=== PATIENT | female | born 1975 | race Caucasian/White ===

== ENCOUNTER 2020-12-10 13:56 | Inpatient (IN) | payer SELFPAY ==
[2020-12-10] MEDS ORDERED: Pantoprazole 40 MG VIAL ONE (14:11)
[2020-12-10 15:25] LABS: Hemoglobin 5.2 g/dL (12.0-16.0); Mean Corpuscular HGB CONC 31.5 g/dL (32.0-36.0); Mean Corpuscular Hemoglobin 26.8 pg (27.0-31.0); Mean Corpuscular Volume 85.2 fL (78.0-98.0); RBC Distribution Width 20.6 % (11.5-14.5); Red Blood Cell (RBC) Count 1.93 mill/uL (4.20-5.40)
[2020-12-10 15:26] LABS: #Eosinphils 0.1 thou/uL (0.0-0.7); #Lymphocytes 1.2 thou/uL (1.20-3.40); #Monocytes 0.5 thou/uL (0.11-0.59); #Neutrophils 3.4 thou/uL (1.40-6.50); %Basophils 0.8 % (0.0-1.0); %Eosinophils 2.5 % (0.0-10.0); %Monocytes 9.2 % (0.0-10.0); %Neutrophils 64.4 % (42.0-75.0); Mean Platelet Volume 9.8 fL (7.4-10.4); Platelet Count 107 thou/uL (130-400); White Blood Cell (WBC) Count 5.2 thou/uL (4.8-10.8)
[2020-12-10 15:34] LABS: PTT 36.2 sec (22.9-36.1); Prothrombin Time 22.6 sec (12.0-14.7)
[2020-12-10 15:37] LABS: Anisocytosis SLIGHT = 6-15 cells (100X) (0-5/hpf); Hypochromia SLIGHT = 6-15 cells (100X) (0-5/hpf); MDiff Complete? YES; Platelet Morphology Comment Appears Decreased; Polychromasia SLIGHT = 2-3 cells (100X) (0-2/hpf); Target Cells SLIGHT = 2-5 cells (100X) (0-1/hpf)
[2020-12-10 15:39] LABS: ALT (SGPT) 19 U/L (8-55); AST (SGOT) 36 U/L (5-34); Albumin 2.8 g/dL (3.5-5.0); Alkaline Phosphatase 84 U/L (40-110); Anion Gap 9 mmol/L (10-20); BUN (Urea Nitrogen) 21 mg/dL (7.0-18.7); Bilirubin, Total 2.2 mg/dL (0.2-1.2); Calc. Creatinine Clearance 0 mL/min (70-130); Calcium 7.9 mg/dL (7.8-10.44); Carbon Dioxide 21 mmol/L (22-29); Chloride 111 mmol/L (98-107); Globulin 2.9 g/dL (2.4-3.5); Glucose 94 mg/dL (70-105); Potassium 3.3 mmol/L (3.5-5.1); Protein, Total 5.7 g/dL (6.0-8.3); Sodium 138 mmol/L (136-145)
[2020-12-10] MEDS ORDERED: Octreotide Acetate 1,250 MCG in Sodium Chloride 0.9% 250 ML 250 ML IVPB SCH (16:30)
[2020-12-10] MEDS ORDERED: Octreotide Acetate 100 MCG/ML VIAL ONE (16:42)
[2020-12-10] MEDS ORDERED: Ondansetron PF 4 MG/2 ML Vial ONE (16:47)
[2020-12-10] MEDS ORDERED: Ondansetron PF 4 MG/2 ML Vial IVP PRN (17:07)
[2020-12-10] MEDS ORDERED: Acetaminophen 325 MG TAB PO PRN (17:07)
[2020-12-10] MEDS ORDERED: Ondansetron ODT 4 MG TAB PO PRN (17:07)
[2020-12-10 18:22] LABS: HBCM Index 0.09 S/CO (0-0.79); Hep A IgM AB Non-Reactive (NonReactive); Hep A IgM S/CO 0.23 S/CO (0-0.79); Hep B Surf Ag Non-Reactive S/CO (NonReactive); Hepatitis B Core IgM Abs Non-Reactive (NonReactive)
[2020-12-10 18:36] LABS: Hep C IgG Ab Reflex HepC Qnt (NonReactive); Hep C Index 12.31 S/CO (0-0.79)
[2020-12-10] MEDS: Lactated Ringer's 1,000 ML IV SCH (18:37)
[2020-12-11] MEDS: Pantoprazole 80 MG, Admixture Fee 1 EACH in Sodium Chloride 0.9% 100 ML IVPB SCH ×2 (02:42→11:17)
[2020-12-11 02:51] LABS: #Eosinphils 0.2 thou/uL (0.0-0.7); #Monocytes 0.4 thou/uL (0.11-0.59); #Neutrophils 2.9 thou/uL (1.40-6.50); %Basophils 0.6 % (0.0-1.0); %Lymphocytes 22.3 % (21.0-51.0); %Monocytes 9.4 % (0.0-10.0); %Neutrophils 63.7 % (42.0-75.0); Hemoglobin 8.2 g/dL (12.0-16.0); Mean Corpuscular HGB CONC 32.1 g/dL (32.0-36.0); Mean Corpuscular Hemoglobin 28.8 pg (27.0-31.0); Mean Corpuscular Volume 89.6 fL (78.0-98.0); Mean Platelet Volume 10.5 fL (7.4-10.4); Platelet Count 64 thou/uL (130-400); RBC Distribution Width 17.9 % (11.5-14.5); Red Blood Cell (RBC) Count 2.84 mill/uL (4.20-5.40); White Blood Cell (WBC) Count 4.6 thou/uL (4.8-10.8)
[2020-12-11 03:26] LABS: ALT (SGPT) 18 U/L (8-55); AST (SGOT) 31 U/L (5-34); Albumin 2.8 g/dL (3.5-5.0); Alkaline Phosphatase 78 U/L (40-110); BUN (Urea Nitrogen) 18 mg/dL (7.0-18.7); Bilirubin, Total 3.1 mg/dL (0.2-1.2); Calc. Creatinine Clearance 0 mL/min (70-130); Calcium 7.9 mg/dL (7.8-10.44); Carbon Dioxide 13 mmol/L (22-29); Chloride 112 mmol/L (98-107); Globulin 2.7 g/dL (2.4-3.5); Glucose 89 mg/dL (70-105); Potassium 3.6 mmol/L (3.5-5.1); Protein, Total 5.5 g/dL (6.0-8.3); Sodium 136 mmol/L (136-145)
[2020-12-11 03:27] LABS: Anion Gap 25 mmol/L (10-20)
[2020-12-11 04:39] VITALS: BMI 22.6
[2020-12-11] MEDS: Pantoprazole 40 MG VIAL IVP SCH ×2 (08:08→20:18)
[2020-12-11] MEDS: Lactated Ringer's 1,000 ML IV SCH ×2 (08:21→14:04)
[2020-12-11 09:05] LABS: SARS-CoV-2 NAA Rapid Test Not Detected (NotDetected)
[2020-12-11] MEDS ORDERED: PROPOFOL 200 MG/20 ML VIAL ONE (09:35)
[2020-12-11] MEDS ORDERED: Nadolol 40 MG TAB PO SCH (10:00)
[2020-12-11] MEDS: rOPINIRole HCl 0.25 MG TAB PO SCH (20:18)
[2020-12-12 03:25] LABS: #Eosinphils 0.1 thou/uL (0.0-0.7); #Lymphocytes 0.8 thou/uL (1.20-3.40); #Monocytes 0.4 thou/uL (0.11-0.59); #Neutrophils 2.9 thou/uL (1.40-6.50); %Basophils 0.3 % (0.0-1.0); %Eosinophils 3.5 % (0.0-10.0); %Lymphocytes 18.9 % (21.0-51.0); %Neutrophils 67.5 % (42.0-75.0); Mean Corpuscular HGB CONC 33.1 g/dL (32.0-36.0); Mean Corpuscular Hemoglobin 29.7 pg (27.0-31.0); Mean Corpuscular Volume 89.6 fL (78.0-98.0); Mean Platelet Volume 10.1 fL (7.4-10.4); Platelet Count 80 thou/uL (130-400); White Blood Cell (WBC) Count 4.3 thou/uL (4.8-10.8)
[2020-12-12 03:47] LABS: Anion Gap 10 mmol/L (10-20); BUN (Urea Nitrogen) 10 mg/dL (7.0-18.7); Calc. Creatinine Clearance 98 mL/min (70-130); Calcium 7.5 mg/dL (7.8-10.44); Carbon Dioxide 19 mmol/L (22-29); Chloride 109 mmol/L (98-107); Glucose 115 mg/dL (70-105); Potassium 3.5 mmol/L (3.5-5.1); Sodium 134 mmol/L (136-145)
[2020-12-12 08:42] LABS: Phosphorus 2.5 mg/dL (2.3-4.7)
[2020-12-12] MEDS: Thiamine 100 MG TAB PO SCH (09:13)
[2020-12-12] MEDS: Pantoprazole 40 MG VIAL IVP SCH (09:13)
[2020-12-12] MEDS: Nadolol 40 MG TAB PO SCH (09:14)
[2020-12-12] MEDS: rOPINIRole HCl 0.25 MG TAB PO SCH ×3 (09:14→21:22)
[2020-12-12] MEDS ORDERED: Magnesium 2 GM/50 ML 2 GM in Premix Bag 1 BAG IVPB SCH (09:30)
[2020-12-13] MEDS ORDERED: Octreotide Acetate 1,250 MCG in Sodium Chloride 0.9% 250 ML 250 ML IVPB SCH (06:51)
[2020-12-13] MEDS: Thiamine 100 MG TAB PO SCH (08:42)
[2020-12-13] MEDS: Nadolol 40 MG TAB PO SCH (08:42)
[2020-12-13] MEDS: rOPINIRole HCl 0.25 MG TAB PO SCH (08:42)
[2020-12-13] MEDS: Magnesium Oxide 400 MG TAB PO SCH (08:53)
[2020-12-13 09:19] LABS: ALT (SGPT) 17 U/L (8-55); AST (SGOT) 32 U/L (5-34); Alkaline Phosphatase 88 U/L (40-110); Anion Gap 9 mmol/L (10-20); BUN (Urea Nitrogen) 6 mg/dL (7.0-18.7); Bilirubin, Total 2.2 mg/dL (0.2-1.2); Calc. Creatinine Clearance 90 mL/min (70-130); Carbon Dioxide 23 mmol/L (22-29); Chloride 108 mmol/L (98-107); Globulin 2.9 g/dL (2.4-3.5); Glucose 157 mg/dL (70-105); Potassium 3.6 mmol/L (3.5-5.1); Protein, Total 5.9 g/dL (6.0-8.3); Sodium 136 mmol/L (136-145)
[2020-12-13 09:48] LABS: #Eosinphils 0.2 thou/uL (0.0-0.7); #Lymphocytes 1.1 thou/uL (1.20-3.40); #Monocytes 0.5 thou/uL (0.11-0.59); #Neutrophils 2.6 thou/uL (1.40-6.50); %Basophils 0.4 % (0.0-1.0); %Eosinophils 3.9 % (0.0-10.0); %Lymphocytes 25.2 % (21.0-51.0); %Monocytes 10.7 % (0.0-10.0); %Neutrophils 59.9 % (42.0-75.0); Anisocytosis SLIGHT = 6-15 cells (100X) (0-5/hpf); Hemoglobin 8.6 g/dL (12.0-16.0); Hypochromia SLIGHT = 6-15 cells (100X) (0-5/hpf); MDiff Complete? YES; Mean Corpuscular HGB CONC 32.1 g/dL (32.0-36.0); Mean Corpuscular Hemoglobin 29.4 pg (27.0-31.0); Mean Corpuscular Volume 91.4 fL (78.0-98.0); Mean Platelet Volume 10.9 fL (7.4-10.4); Platelet Count 82 thou/uL (130-400); Platelet Morphology Comment Appears Decreased; RBC Distribution Width 20.9 % (11.5-14.5); Red Blood Cell (RBC) Count 2.92 mill/uL (4.20-5.40); White Blood Cell (WBC) Count 4.3 thou/uL (4.8-10.8)
[2020-12-13] MEDS ORDERED: Magnesium 2 GM/50 ML 2 GM in Premix Bag 1 BAG IVPB SCH (11:00)
[2020-12-13 11:40] LABS: Hep C PCR-Quant 2690 IU/mL (.)
[2020-12-13] MEDS: Ciprofloxacin 500 MG TAB PO SCH (20:44)
[2020-12-14] MEDS: Ciprofloxacin 500 MG TAB PO SCH (06:29)
[2020-12-14 07:34] VITALS: BP 122/75; TEMP 98.5
[2020-12-14] MEDS: Magnesium Oxide 400 MG TAB PO SCH (08:39)
[2020-12-14] MEDS: Thiamine 100 MG TAB PO SCH (08:39)
[2020-12-14] MEDS ORDERED: Nadolol 40 MG TAB PO SCH (09:00)
== END 2020-12-14 09:56 | disposition home or self-care (01) | DRG 432 ==
LOC: ERS 13:56 → ERHOLD 16:26 → IMCU/EMU 21:44 → T4-A 12-12 11:34
PROVIDERS: ADMIT Family Medicine; ATTEND Family Medicine
PROC: 30233N1 Transfusion of Nonautologous Red Blood Cells into Peripheral Vein, Percutaneous Approach (ICD-10-PCS; principal; 2020-12-10)
PROC: 06L38CZ Occlusion of Esophageal Vein with Extraluminal Device, Via Natural or Artificial Opening Endoscopic (ICD-10-PCS; 2020-12-11)
DX: K70.31 Alcoholic cirrhosis of liver with ascites (principal); I85.11 Secondary esophageal varices with bleeding; D62 Acute posthemorrhagic anemia; F17.210 Nicotine dependence, cigarettes, uncomplicated; K02.9 Dental caries, unspecified; F10.10 Alcohol abuse, uncomplicated; K08.109 Complete loss of teeth, unspecified cause, unspecified class; K72.90 Hepatic failure, unspecified without coma; I10 Essential (primary) hypertension; K31.9 Disease of stomach and duodenum, unspecified; B18.2 Chronic viral hepatitis C; M85.88 Other specified disorders of bone density and structure, other site; K08.89 Other specified disorders of teeth and supporting structures; G25.81 Restless legs syndrome; Z88.0 Allergy status to penicillin
CPT/HCPCS: 36415; 36430; 70150; 80048; 80053; 80074; 82140; 82274; 83735; 84100; 84145; 85025; 85610; 85730; 86850; 86900; 86901; 87522; 93005; 96365; 96366; 96374; 96375; 96376; C9113; J0744; J2354; J2405; J2704; J3475; J3490; J7050; P9016; U0002; U0003; U0005

== ENCOUNTER 2022-04-06 09:39 | Emergency (ER) | payer OTHER, SELFPAY ==
[2022-04-06] MEDS ORDERED: Lidocaine 1% PF 5 ML VIAL ONE (11:35)
[2022-04-06 11:46] LABS: #Eosinphils 0.2 thou/uL (0.0-0.7); #Monocytes 0.5 thou/uL (0.11-0.59); #Neutrophils 2.4 thou/uL (1.40-6.50); %Basophils 1.1 % (0.0-1.0); %Eosinophils 4.1 % (0.0-10.0); %Lymphocytes 25.4 % (21.0-51.0); %Monocytes 11.3 % (0.0-10.0); Hemoglobin 11.3 g/dL (12.0-16.0); Mean Corpuscular HGB CONC 32.3 g/dL (32.0-36.0); Mean Corpuscular Hemoglobin 36.3 pg (27.0-31.0); Mean Platelet Volume 8.2 fL (7.4-10.4); Platelet Count 99 thou/uL (130-400); RBC Distribution Width 14.3 % (11.5-14.5); Red Blood Cell (RBC) Count 3.12 mill/uL (4.20-5.40); White Blood Cell (WBC) Count 4.1 thou/uL (4.8-10.8)
[2022-04-06 11:54] LABS: INR-International Normal Ratio 1.8; Prothrombin Time 20.7 sec (12.0-14.7)
[2022-04-06 11:55] LABS: PTT 39.4 sec (22.9-36.1)
[2022-04-06 12:05] LABS: ALT (SGPT) 10 U/L (8-55); AST (SGOT) 39 U/L (5-34); Albumin 3.3 g/dL (3.5-5.0); Alkaline Phosphatase 118 U/L (40-110); Anion Gap 15 mmol/L (10-20); BUN (Urea Nitrogen) 4 mg/dL (7.0-18.7); Bilirubin, Total 7.6 mg/dL (0.2-1.2); Calc. Creatinine Clearance 0 mL/min (70-130); Calcium 8.5 mg/dL (7.8-10.44); Carbon Dioxide 21 mmol/L (22-29); Chloride 106 mmol/L (98-107); Estimated GFR 113; Globulin 3.5 g/dL (2.4-3.5); Glucose 95 mg/dL (70-105); Potassium 3.4 mmol/L (3.5-5.1); Protein, Total 6.8 g/dL (6.0-8.3); Sodium 139 mmol/L (136-145)
[2022-04-06 12:07] LABS: Helmet Cells SLIGHT = 2-5 cells (100X) (0-1/hpf); MDiff Complete? YES; Macrocytosis SLIGHT = 6-15 cells (100X) (0-5/hpf); Ovalocytes SLIGHT = 2-5 cells (100X) (0-1/hpf); Platelet Morphology Comment Appears Decreased; Polychromasia SLIGHT = 2-3 cells (100X) (0-2/hpf); Tear Drops SLIGHT = 2-5 cells (100X) (0-1/hpf)
== END 2022-04-06 13:21 | disposition home or self-care (01) ==
LOC: ERS 09:39
DX: K74.60 Unspecified cirrhosis of liver (principal); R18.8 Other ascites; F17.210 Nicotine dependence, cigarettes, uncomplicated
CPT/HCPCS: 36415; 80053; 82140; 85025; 85610; 85730; 99284

== ENCOUNTER 2023-07-23 05:48 | Inpatient (IN) | payer OTHER ==
[2023-07-23 06:54] LABS: #Basophils 0.1 thou/uL (0.0-0.2); #Eosinphils 0.2 thou/uL (0.0-0.7); #Monocytes 0.6 thou/uL (0.11-0.59); #Neutrophils 3.5 thou/uL (1.40-6.50); %Basophils 1.1 % (0.0-1.0); %Eosinophils 3.2 % (0.0-10.0); %Lymphocytes 20.8 % (21.0-51.0); %Neutrophils 63.4 % (42.0-75.0); Hemoglobin 9.8 g/dL (12.0-16.0); Mean Corpuscular HGB CONC 33.8 g/dL (32.0-36.0); Mean Corpuscular Hemoglobin 36.6 pg (27.0-31.0); Mean Corpuscular Volume 108.2 fl (78.0-98.0); Mean Platelet Volume 9.1 fL (7.4-10.4); Platelet Count 98 10x3/uL (130-400); RBC Distribution Width 17.2 % (11.5-14.5); Red Blood Cell (RBC) Count 2.68 mill/uL (4.20-5.40); White Blood Cell (WBC) Count 5.5 10x3/uL (4.8-10.8)
[2023-07-23 07:08] LABS: ALT (SGPT) 18 U/L (8-55); AST (SGOT) 49 U/L (5-34); Albumin 2.8 g/dL (3.5-5.0); Alkaline Phosphatase 156 U/L (40-110); Anion Gap 13 mmol/L (10-20); BUN (Urea Nitrogen) 6 mg/dL (7.0-18.7); Bilirubin, Total 12.6 mg/dL (0.2-1.2); Calc. Creatinine Clearance 0 mL/min (70-130); Calcium 8.1 mg/dL (7.8-10.44); Carbon Dioxide 23 mmol/L (22-29); Chloride 101 mmol/L (98-107); Estimated GFR 115; Globulin 3.3 g/dL (2.4-3.5); Glucose 100 mg/dL (70-105); Potassium 2.9 mmol/L (3.5-5.1); Protein, Total 6.1 g/dL (6.0-8.3); Sodium 134 mmol/L (136-145)
[2023-07-23 08:24] LABS: INR-International Normal Ratio 1.9
[2023-07-23 08:25] LABS: PTT 38.2 sec (22.9-36.1)
[2023-07-23 08:31] LABS: Magnesium 1.5 mg/dL (1.6-2.6)
[2023-07-23] MEDS ORDERED: Potassium Chloride 20 MEQ (100 mL) BAG ONE ×2 (10:00→12:24)
[2023-07-23] MEDS ORDERED: fentaNYL 50 mcg/mL 1 mL Vial ONE (10:02)
[2023-07-23 11:21] LABS: BHCG - Serum Negative (NEGATIVE); Pregs Control Background? CLEAR/WHITE (CLR/WHITE); Pregs Control Bar Appear? YES (CONTROL BAR)
[2023-07-23] MEDS ORDERED: Iopamidol-370 76% 500 ML MDV (1 ML CHARGE) ONE (11:55)
[2023-07-23] MEDS ORDERED: cefTRIAXone (ROCEPHIN) 1 GM VIAL ONE (12:25)
[2023-07-23] MEDS ORDERED: Sodium Chloride 0.9% 100 ML ONE (12:25)
[2023-07-23] MEDS ORDERED: Acetaminophen 325 MG TAB PO PRN (13:19)
[2023-07-23] MEDS ORDERED: Ondansetron PF 4 MG/2 ML Vial IVP PRN (13:19)
[2023-07-23] MEDS ORDERED: Acetaminophen 650 MG Suppository PR PRN (13:19)
[2023-07-23] MEDS ORDERED: Ondansetron ODT 4 MG TAB PO PRN (13:19)
[2023-07-23] MEDS ORDERED: Electrolyte Replacement Protocol 1 EACH FS SCH (13:30)
[2023-07-23] MEDS ORDERED: Magnesium Sulfate In Water 4 GM in Premix 1 BAG IVPB SCH (13:30)
[2023-07-23] MEDS ORDERED: Potassium Chloride 20 MEQ TAB PO SCH (14:00)
[2023-07-23] MEDS ORDERED: Magnesium 2 GM/50 ML BAG (IN WATER) ONE ×2 (14:33→15:14)
[2023-07-23] MEDS ORDERED: Potassium Chloride 20 MEQ TAB ONE (14:33)
[2023-07-23 15:22] LABS: Bilirubin 1+ (Negative); Blood, Urine Negative (Negative); CAUTI Indications for Culture Pelvic or flank pain; Clarity Clear (Clear); Glucose, Urine (Dipstick) Normal (Negative); Ketone, Urine Negative (Negative); Leukocyte Negative Leu/uL (Negative); Nitrite 2+ (Negative); Protein, Urine (Dipstick) 20 mg/dL (Neg-Trace); RBC/HPF 0-3 HPF (0-3); Squamous Epithelial 21-50 HPF (0-3); Urobilinogen 12 mg/dL (Less than 2); pH, Urine 7.5 (5.0-9.0)
[2023-07-23 15:23] LABS: Bacteria/HPF 1+ HPF (None Seen); Specific Gravity, Urine 1.055 (1.002-1.036)
[2023-07-23 15:24] LABS: Urine Culture Reflex No No
[2023-07-23 15:48] VITALS: BMI 25.7
[2023-07-24] MEDS: Morphine 2 MG/ML VIAL SLOW IVP PRN ×3 (02:02→22:05)
[2023-07-24 05:01] LABS: #Eosinphils 0.2 thou/uL (0.0-0.7); #Monocytes 0.8 thou/uL (0.11-0.59); #Neutrophils 4.4 thou/uL (1.40-6.50); %Basophils 0.4 % (0.0-1.0); %Lymphocytes 18.5 % (21.0-51.0); %Monocytes 11.7 % (0.0-10.0); %Neutrophils 65.5 % (42.0-75.0); Hematocrit 26.8 % (36.0-47.0); Hemoglobin 8.9 g/dL (12.0-16.0); Mean Corpuscular HGB CONC 33.2 g/dL (32.0-36.0); Mean Corpuscular Hemoglobin 36.9 pg (27.0-31.0); Mean Corpuscular Volume 111.2 fl (78.0-98.0); Mean Platelet Volume 9.6 fL (7.4-10.4); RBC Distribution Width 17.5 % (11.5-14.5); Red Blood Cell (RBC) Count 2.41 mill/uL (4.20-5.40); White Blood Cell (WBC) Count 6.8 10x3/uL (4.8-10.8)
[2023-07-24 05:23] LABS: Platelet Count 116 10x3/uL (130-400)
[2023-07-24 05:29] LABS: Anion Gap 12 mmol/L (10-20); BUN (Urea Nitrogen) 7 mg/dL (7.0-18.7); Calc. Creatinine Clearance 108 mL/min (70-130); Calcium 7.7 mg/dL (7.8-10.44); Carbon Dioxide 21 mmol/L (22-29); Chloride 104 mmol/L (98-107); Estimated GFR 109; Glucose 143 mg/dL (70-105); Potassium 3.3 mmol/L (3.5-5.1); Sodium 134 mmol/L (136-145)
[2023-07-24] MEDS ORDERED: Potassium Chloride 20 MEQ TAB PO SCH ×2 (08:00→14:00)
[2023-07-24] MEDS ORDERED: Magnesium 2 GM/50 ML(in water) 2 GM in Premix 1 BAG IVPB SCH (08:00)
[2023-07-24] MEDS: Thiamine 100 MG TAB PO SCH (08:42)
[2023-07-24] MEDS: Nadolol 40 MG TAB PO SCH (08:42)
[2023-07-24] MEDS: cefTRIAXone\\ROCEPHIN 2 GM in Sodium Chloride 0.9% 100 ML IVPB SCH (10:12)
[2023-07-24 12:55] LABS: Potassium 3.4 mmol/L (3.5-5.1)
[2023-07-24 20:39] LABS: Potassium 3.9 mmol/L (3.5-5.1)
[2023-07-25 06:29] LABS: #Eosinphils 0.2 thou/uL (0.0-0.7); #Monocytes 0.5 thou/uL (0.11-0.59); #Neutrophils 3.2 thou/uL (1.40-6.50); %Basophils 0.8 % (0.0-1.0); %Eosinophils 4.3 % (0.0-10.0); %Lymphocytes 22.1 % (21.0-51.0); %Monocytes 10.6 % (0.0-10.0); %Neutrophils 61.6 % (42.0-75.0); Hematocrit 27.4 % (36.0-47.0); Hemoglobin 9.1 g/dL (12.0-16.0); Mean Corpuscular HGB CONC 33.2 g/dL (32.0-36.0); Mean Corpuscular Hemoglobin 36.8 pg (27.0-31.0); Mean Corpuscular Volume 110.9 fl (78.0-98.0); Mean Platelet Volume 9.5 fL (7.4-10.4); Platelet Count 105 10x3/uL (130-400); RBC Distribution Width 17.4 % (11.5-14.5); Red Blood Cell (RBC) Count 2.47 mill/uL (4.20-5.40); White Blood Cell (WBC) Count 5.1 10x3/uL (4.8-10.8)
[2023-07-25 06:57] LABS: ALT (SGPT) 15 U/L (8-55); AST (SGOT) 36 U/L (5-34); Albumin 2.3 g/dL (3.5-5.0); Alkaline Phosphatase 125 U/L (40-110); Anion Gap 11 mmol/L (10-20); BUN (Urea Nitrogen) 7 mg/dL (7.0-18.7); Calc. Creatinine Clearance 120 mL/min (70-130); Calcium 7.8 mg/dL (7.8-10.44); Carbon Dioxide 22 mmol/L (22-29); Chloride 105 mmol/L (98-107); Estimated GFR 111; Globulin 2.8 g/dL (2.4-3.5); Glucose 88 mg/dL (70-105); Magnesium 1.6 mg/dL (1.6-2.6); Potassium 3.8 mmol/L (3.5-5.1); Protein, Total 5.1 g/dL (6.0-8.3); Sodium 134 mmol/L (136-145)
[2023-07-25 07:00] LABS: Anisocytosis SLIGHT = 6-15 cells HPF (0-5); Burr Cells SLIGHT = 2-5 cells HPF (0-1); CellaVision Operator ID lab.abc; Macrocytosis SLIGHT = 6-15 cells HPF (0-5); Platelet Adequacy Comment Platelets Decreased; Poikilocytosis SLIGHT = 6-15 cells HPF (0-5); Polychromasia SLIGHT = 2-3 cells HPF (0-2)
[2023-07-25] MEDS ORDERED: Magnesium 2 GM/50 ML(in water) 2 GM in Premix 1 BAG IVPB SCH (07:30)
[2023-07-25] MEDS: Nadolol 40 MG TAB PO SCH (08:56)
[2023-07-25] MEDS: Thiamine 100 MG TAB PO SCH (08:56)
[2023-07-25] MEDS: cefTRIAXone\\ROCEPHIN 2 GM in Sodium Chloride 0.9% 100 ML IVPB SCH (10:26)
[2023-07-25] MEDS: Morphine 2 MG/ML VIAL SLOW IVP PRN ×2 (11:00→22:06)
[2023-07-26 05:18] LABS: #Eosinphils 0.2 thou/uL (0.0-0.7); #Monocytes 0.7 thou/uL (0.11-0.59); #Neutrophils 3.4 thou/uL (1.40-6.50); %Basophils 0.7 % (0.0-1.0); %Eosinophils 3.2 % (0.0-10.0); %Lymphocytes 22.7 % (21.0-51.0); %Monocytes 11.7 % (0.0-10.0); Hematocrit 28.8 % (36.0-47.0); Hemoglobin 9.3 g/dL (12.0-16.0); Mean Corpuscular HGB CONC 32.3 g/dL (32.0-36.0); Mean Corpuscular Hemoglobin 35.6 pg (27.0-31.0); Mean Corpuscular Volume 110.3 fl (78.0-98.0); Mean Platelet Volume 9.6 fL (7.4-10.4); RBC Distribution Width 17.7 % (11.5-14.5); Red Blood Cell (RBC) Count 2.61 mill/uL (4.20-5.40); White Blood Cell (WBC) Count 5.5 10x3/uL (4.8-10.8)
[2023-07-26] MEDS: Morphine 2 MG/ML VIAL SLOW IVP PRN ×2 (05:25→17:49)
[2023-07-26 05:45] LABS: ALT (SGPT) 14 U/L (8-55); AST (SGOT) 36 U/L (5-34); Albumin 2.4 g/dL (3.5-5.0); Alkaline Phosphatase 122 U/L (40-110); Anion Gap 9 mmol/L (10-20); BUN (Urea Nitrogen) 7 mg/dL (7.0-18.7); Bilirubin, Total 10.8 mg/dL (0.2-1.2); Calc. Creatinine Clearance 105 mL/min (70-130); Calcium 7.8 mg/dL (7.8-10.44); Carbon Dioxide 22 mmol/L (22-29); Chloride 105 mmol/L (98-107); Estimated GFR 107; Globulin 2.7 g/dL (2.4-3.5); Glucose 91 mg/dL (70-105); Magnesium 1.6 mg/dL (1.6-2.6); Potassium 3.6 mmol/L (3.5-5.1); Protein, Total 5.1 g/dL (6.0-8.3); Sodium 132 mmol/L (136-145)
[2023-07-26 06:05] LABS: Platelet Count 112 10x3/uL (130-400)
[2023-07-26] MEDS ORDERED: Magnesium 2 GM/50 ML(in water) 2 GM in Premix 1 BAG IVPB SCH (08:00)
[2023-07-26] MEDS: cefTRIAXone\\ROCEPHIN 2 GM in Sodium Chloride 0.9% 100 ML IVPB SCH (08:48)
[2023-07-26] MEDS: Thiamine 100 MG TAB PO SCH (08:54)
[2023-07-26] MEDS: Nadolol 40 MG TAB PO SCH (08:54)
[2023-07-26] MEDS ORDERED: FLU VACC QS2023-24(6MOS UP)/PF 60 MCG/0.5 ML SYRINGE IM ONE (09:00)
[2023-07-26] MEDS ORDERED: Lidocaine 1% PF 5 ML VIAL ONE ×2 (12:09→12:14)
[2023-07-26 19:40] VITALS: TEMP 98.3
[2023-07-27] MEDS: Morphine 2 MG/ML VIAL SLOW IVP PRN (03:57)
[2023-07-27 05:22] LABS: #Eosinphils 0.2 thou/uL (0.0-0.7); #Monocytes 0.7 thou/uL (0.11-0.59); #Neutrophils 2.8 thou/uL (1.40-6.50); %Basophils 0.8 % (0.0-1.0); %Eosinophils 4.3 % (0.0-10.0); %Lymphocytes 22.4 % (21.0-51.0); %Monocytes 13.6 % (0.0-10.0); %Neutrophils 58.1 % (42.0-75.0); Hematocrit 26.4 % (36.0-47.0); Hemoglobin 8.7 g/dL (12.0-16.0); Mean Corpuscular Hemoglobin 36.7 pg (27.0-31.0); Mean Corpuscular Volume 111.4 fl (78.0-98.0); Mean Platelet Volume 9.4 fL (7.4-10.4); Platelet Count 105 10x3/uL (130-400); RBC Distribution Width 17.9 % (11.5-14.5); Red Blood Cell (RBC) Count 2.37 mill/uL (4.20-5.40); White Blood Cell (WBC) Count 4.9 10x3/uL (4.8-10.8)
[2023-07-27 05:55] LABS: ALT (SGPT) 16 U/L (8-55); AST (SGOT) 39 U/L (5-34); Albumin 2.2 g/dL (3.5-5.0); Alkaline Phosphatase 128 U/L (40-110); Anion Gap 8 mmol/L (10-20); BUN (Urea Nitrogen) 7 mg/dL (7.0-18.7); Bilirubin, Total 9.3 mg/dL (0.2-1.2); Calc. Creatinine Clearance 114 mL/min (70-130); Calcium 7.8 mg/dL (7.8-10.44); Carbon Dioxide 22 mmol/L (22-29); Chloride 106 mmol/L (98-107); Estimated GFR 110; Globulin 2.6 g/dL (2.4-3.5); Glucose 100 mg/dL (70-105); Potassium 3.3 mmol/L (3.5-5.1); Protein, Total 4.8 g/dL (6.0-8.3); Sodium 133 mmol/L (136-145)
[2023-07-27 06:09] LABS: Anisocytosis SLIGHT = 6-15 cells HPF (0-5); Burr Cells SLIGHT = 2-5 cells HPF (0-1); CellaVision Operator ID lab.abc; Large Platelets 0.9 % (0-5); Macrocytosis SLIGHT = 6-15 cells HPF (0-5); Platelet Adequacy Comment Platelets Decreased; Poikilocytosis MODERATE=16-30 cells HPF (0-5); Polychromasia SLIGHT = 2-3 cells HPF (0-2); Smudge Cells 23.3 %
[2023-07-27 07:53] LABS: Magnesium 1.6 mg/dL (1.6-2.6)
[2023-07-27] MEDS ORDERED: Potassium Chloride 20 MEQ TAB PO SCH (08:00)
[2023-07-27] MEDS: Nadolol 40 MG TAB PO SCH (08:36)
[2023-07-27] MEDS: cefTRIAXone\\ROCEPHIN 2 GM in Sodium Chloride 0.9% 100 ML IVPB SCH (08:36)
[2023-07-27] MEDS: Thiamine 100 MG TAB PO SCH (08:36)
[2023-07-27] MEDS ORDERED: Magnesium 2 GM/50 ML(in water) 2 GM in Premix 1 BAG IVPB SCH (09:00)
[2023-07-27] MEDS ORDERED: Folic Acid 1 MG TAB PO SCH (09:00)
[2023-07-27] MEDS ORDERED: Furosemide 40 MG TAB PO SCH (09:00)
[2023-07-27] MEDS ORDERED: Magnesium Oxide 400 MG TAB PO SCH (09:00)
[2023-07-27] MEDS ORDERED: Spironolactone 100 MG TAB PO SCH (09:00)
[2023-07-27 09:56] VITALS: BP 124/63
== END 2023-07-27 10:48 | disposition home or self-care (01) | DRG 433 ==
LOC: ERS 05:48 → ERHOLD 12:59 → 2SW 15:40 → OBSVTOIN 07-25 11:06
PROVIDERS: ADMIT Internal Medicine; ATTEND Family Medicine
PROC: 0W9G3ZZ Drainage of Peritoneal Cavity, Percutaneous Approach (ICD-10-PCS; principal; 2023-07-26)
DX: K70.31 Alcoholic cirrhosis of liver with ascites (principal); E87.1 Hypo-osmolality and hyponatremia; I85.10 Secondary esophageal varices without bleeding; K76.6 Portal hypertension; E87.6 Hypokalemia; E83.42 Hypomagnesemia; E80.6 Other disorders of bilirubin metabolism; D64.9 Anemia, unspecified; K76.82 Hepatic encephalopathy; K80.20 Calculus of gallbladder without cholecystitis without obstruction; B18.2 Chronic viral hepatitis C; Z88.0 Allergy status to penicillin; Z79.899 Other long term (current) drug therapy; Z98.890 Other specified postprocedural states; Z82.49 Family history of ischemic heart disease and other diseases of the circulatory system
CPT/HCPCS: 36415; 49083; 74177; 76705; 80048; 80053; 81001; 82140; 83605; 83690; 83735; 84703; 85025; 85610; 85730; 87040; 87086; 90471; 90686; 96375; 96376; G0008; G0378; J0696; J2272; J3010; J3475; J3480; J3490; Q9967

== ENCOUNTER 2024-04-10 21:03 | Inpatient (IN) | payer MEDICAID, OTHER ==
[~2024-04-10 21:03] MED LIST: Iopamidol 370 76% 100 ML VIAL ONE
[2024-04-10 23:07] LABS: Lipase 83 U/L (8-78)
[2024-04-10 23:08] LABS: ALT (SGPT) 18 U/L (8-55); AST (SGOT) 59 U/L (5-34); Albumin 2.9 g/dL (3.5-5.0); Alkaline Phosphatase 148 U/L (40-110); Anion Gap 15 mmol/L (10-20); BUN (Urea Nitrogen) 4 mg/dL (7.0-18.7); Bilirubin, Total 6.7 mg/dL (0.2-1.2); Calc. Creatinine Clearance 0 mL/min (70-130); Calcium 8.5 mg/dL (7.8-10.44); Carbon Dioxide 22 mmol/L (22-29); Chloride 109 mmol/L (98-107); Estimated GFR 91; Glucose 130 mg/dL (70-105); Potassium 2.9 mmol/L (3.5-5.1); Protein, Total 6.9 g/dL (6.0-8.3); Sodium 143 mmol/L (136-145)
[2024-04-10 23:09] LABS: Acetaminophen Less than 10 mcg/mL (Less than 10); Alcohol 280.8 mg/dL (Less than 10); Salicylate Less than 8.0 mg/dL (Less than 8.0)
[2024-04-10 23:11] LABS: #Basophils 0.06 10x3/uL (0.0-0.2); %Basophils 1.1 % (0.0-1.0); %Eosinophils 1.5 % (0.0-10.0); %Lymphocytes 17.4 % (21.0-51.0); %Monocytes 14.2 % (0.0-10.0); %Neutrophils 65.4 % (42.0-75.0); Hematocrit 33.4 % (36.0-47.0); Hemoglobin 11.2 g/dL (12.0-16.0); Mean Corpuscular HGB CONC 33.5 g/dL (32.0-36.0); Mean Corpuscular Hemoglobin 33.4 pg (27.0-31.0); Mean Corpuscular Volume 99.7 fL (78.0-98.0); Mean Platelet Volume 10.5 fL (7.4-10.4); Platelet Count 106 10x3/uL (130-400); RBC Distribution Width 19.3 % (11.5-14.5); Red Blood Cell (RBC) Count 3.35 mill/uL (4.20-5.40)
[2024-04-11] MEDS ORDERED: Ondansetron PF 4 MG/2 ML Vial ONE (00:14)
[2024-04-11 00:58] LABS: Bacteria/HPF 3+ HPF (None Seen); Bilirubin Negative (Negative); Blood, Urine Negative (Negative); CAUTI Indications for Culture Pelvic or flank pain; Clarity Clear (Clear); Glucose, Urine (Dipstick) Normal (Negative); Ketone, Urine Negative (Negative); Leukocyte Negative Leu/uL (Negative); Nitrite 2+ (Negative); Protein, Urine (Dipstick) Negative (Neg-Trace); RBC/HPF 0-3 HPF (0-3); Squamous Epithelial 0-3 HPF (0-3); Urobilinogen Normal mg/dL (Less than 2); pH, Urine 7.5 (5.0-9.0)
[2024-04-11 00:59] LABS: Specific Gravity, Urine 1.045 (1.002-1.036); Urine Culture Reflex No No
[2024-04-11] MEDS ORDERED: Potassium Chloride 20 MEQ TAB ONE (01:05)
[2024-04-11 01:35] LABS: Magnesium 1.3 mg/dL (1.6-2.6)
[2024-04-11] MEDS ORDERED: Sodium Chloride 0.9% 100 ML ONE (02:02)
[2024-04-11] MEDS ORDERED: cefTRIAXone (ROCEPHIN) 1 GM VIAL ONE (02:02)
[2024-04-11] MEDS ORDERED: Magnesium 2 GM/50 ML BAG (IN WATER) ONE (02:02)
[2024-04-11] MEDS ORDERED: Lorazepam 1 MG TAB PO PRN (02:58)
[2024-04-11] MEDS ORDERED: Lorazepam 2 MG/ML VIAL IM PRN (02:58)
[2024-04-11] MEDS ORDERED: Ondansetron ODT 4 MG TAB PO PRN ×2 (02:58→03:08)
[2024-04-11] MEDS ORDERED: Electrolyte Replacement Protocol 1 EACH FS SCH (03:00)
[2024-04-11] MEDS ORDERED: Acetaminophen 650 MG Suppository PR PRN (03:08)
[2024-04-11] MEDS ORDERED: Calcium Carbonate 500 MG ChewTAB PO PRN (03:08)
[2024-04-11 03:21] VITALS: BMI 25.2
[2024-04-11 03:21] LABS: Amphetamine Not Detected (NotDetected); Barbiturates Screen Not Detected (NotDetected); Benzodiazepine Screen Not Detected (NotDetected); Cocaine Metabolite Screen Not Detected (NotDetected); Methadone Not Detected (NotDetected); Methamphetamine Not Detected (NotDetected); Opiate Screen Not Detected (NotDetected); Oxycodone Screen Not Detected (NotDetected); Phencyclidine (PCP) Not Detected (NotDetected); THC/Cannabinoid Screen Detected (NotDetected); Tricyclic Screen Not Detected (NotDetected)
[2024-04-11] MEDS: Thiamine HCl 200 MG/2 ML VIAL SLOW IVP SCH (03:37)
[2024-04-11] MEDS: Ondansetron PF 4 MG/2 ML Vial IVP PRN (03:37)
[2024-04-11] MEDS: Magnesium 2 GM/50 ML(in water) 2 GM in Premix 1 BAG IVPB SCH (03:37)
[2024-04-11] MEDS: Lorazepam 1 MG TAB PO SCH (03:38)
[2024-04-11] MEDS: NS 0.9% w/ 40 MEQ KCL 1,000 ML IV SCH (03:39)
[2024-04-11 05:00] LABS: ALT (SGPT) 19 U/L (8-55); AST (SGOT) 63 U/L (5-34); Albumin 2.9 g/dL (3.5-5.0); Alkaline Phosphatase 140 U/L (40-110); Anion Gap 16 mmol/L (10-20); BUN (Urea Nitrogen) Less than 4 mg/dL (7.0-18.7); Bilirubin, Total 6.9 mg/dL (0.2-1.2); Calc. Creatinine Clearance 91 mL/min (70-130); Calcium 8.1 mg/dL (7.8-10.44); Carbon Dioxide 20 mmol/L (22-29); Chloride 110 mmol/L (98-107); Estimated GFR 99; Globulin 4.1 g/dL (2.4-3.5); Glucose 85 mg/dL (70-105); Magnesium 2.4 mg/dL (1.6-2.6); Phosphorus 2.8 mg/dL (2.3-4.7); Potassium 3.3 mmol/L (3.5-5.1); Sodium 143 mmol/L (136-145)
[2024-04-11] MEDS: Acetaminophen 325 MG TAB PO SCH (06:15)
[2024-04-11] MEDS: Spironolactone 100 MG TAB PO SCH (08:56)
[2024-04-11] MEDS: Potassium Chloride 20 MEQ TAB PO SCH (08:56)
[2024-04-11] MEDS: Magnesium Oxide 400 MG TAB PO SCH (08:57)
[2024-04-11] MEDS: Multivit, Therapeutic 1 TAB PO SCH (08:57)
[2024-04-11] MEDS: Folic Acid 1 MG TAB PO SCH ×2 (08:57→08:58)
[2024-04-11] MEDS: Pantoprazole DR 40 MG TAB PO SCH (08:57)
[2024-04-11] MEDS: Nadolol 40 MG TAB PO SCH (08:57)
[2024-04-11] MEDS: Furosemide 40 MG TAB PO SCH (08:57)
[2024-04-11] MEDS ORDERED: Potassium Chloride 10 MEQ TAB PO SCH (09:00)
[2024-04-11 09:05] LABS: Potassium 3.7 mmol/L (3.5-5.1)
[2024-04-11 10:43] LABS: #Basophils 0.05 10x3/uL (0.0-0.2); %Basophils 1.1 % (0.0-1.0); %Lymphocytes 15.4 % (21.0-51.0); %Monocytes 13.3 % (0.0-10.0); %Neutrophils 67.7 % (42.0-75.0); Hematocrit 31.2 % (36.0-47.0); Hemoglobin 10.3 g/dL (12.0-16.0); Mean Corpuscular Hemoglobin 33.1 pg (27.0-31.0); Mean Corpuscular Volume 100.3 fL (78.0-98.0); Mean Platelet Volume 10.2 fL (7.4-10.4); Platelet Count 85 10x3/uL (130-400); RBC Distribution Width 19.7 % (11.5-14.5); Red Blood Cell (RBC) Count 3.11 mill/uL (4.20-5.40)
[2024-04-11 10:52] LABS: ALT (SGPT) 17 U/L (8-55); AST (SGOT) 55 U/L (5-34); Albumin 2.6 g/dL (3.5-5.0); Alkaline Phosphatase 132 U/L (40-110); Anion Gap 11 mmol/L (10-20); BUN (Urea Nitrogen) Less than 4 mg/dL (7.0-18.7); Bilirubin, Total 6.1 mg/dL (0.2-1.2); Calc. Creatinine Clearance 95 mL/min (70-130); Calcium 7.6 mg/dL (7.8-10.44); Carbon Dioxide 21 mmol/L (22-29); Chloride 113 mmol/L (98-107); Estimated GFR 104; Globulin 3.6 g/dL (2.4-3.5); Glucose 130 mg/dL (70-105); Potassium 3.5 mmol/L (3.5-5.1); Protein, Total 6.2 g/dL (6.0-8.3); Sodium 141 mmol/L (136-145)
[2024-04-11 13:13] LABS: Potassium 3.6 mmol/L (3.5-5.1)
[2024-04-12] MEDS: cefTRIAXone\\ROCEPHIN 1 GM in Sodium Chloride 0.9% 100 ML IVPB SCH (02:00)
[2024-04-12] MEDS ORDERED: Lorazepam 1 MG TAB PO PRN (02:58)
[2024-04-12 04:32] LABS: #Basophils 0.05 10x3/uL (0.0-0.2); %Eosinophils 3.1 % (0.0-10.0); %Lymphocytes 24.6 % (21.0-51.0); %Monocytes 12.9 % (0.0-10.0); %Neutrophils 58.2 % (42.0-75.0); Hematocrit 36.1 % (36.0-47.0); Hemoglobin 11.3 g/dL (12.0-16.0); Mean Corpuscular HGB CONC 31.3 g/dL (32.0-36.0); Mean Corpuscular Hemoglobin 33.2 pg (27.0-31.0); Mean Corpuscular Volume 106.2 fL (78.0-98.0); Mean Platelet Volume 10.4 fL (7.4-10.4); Platelet Count 90 10x3/uL (130-400); RBC Distribution Width 19.5 % (11.5-14.5)
[2024-04-12 05:43] LABS: ALT (SGPT) 19 U/L (8-55); AST (SGOT) 61 U/L (5-34); Albumin 2.6 g/dL (3.5-5.0); Alkaline Phosphatase 125 U/L (40-110); Anion Gap 12 mmol/L (10-20); BUN (Urea Nitrogen) 7 mg/dL (7.0-18.7); Bilirubin, Total 7.6 mg/dL (0.2-1.2); Calc. Creatinine Clearance 87 mL/min (70-130); Calcium 7.9 mg/dL (7.8-10.44); Carbon Dioxide 21 mmol/L (22-29); Chloride 108 mmol/L (98-107); Estimated GFR 93; Glucose 81 mg/dL (70-105); Magnesium 1.6 mg/dL (1.6-2.6); Potassium 3.4 mmol/L (3.5-5.1); Protein, Total 6.6 g/dL (6.0-8.3); Sodium 138 mmol/L (136-145)
[2024-04-12] MEDS: Potassium Chloride 10 MEQ TAB PO SCH (08:29)
[2024-04-12] MEDS: Potassium Chloride 20 MEQ TAB PO SCH (08:29)
[2024-04-12] MEDS: Magnesium 2 GM/50 ML(in water) 2 GM in Premix 1 BAG IVPB SCH (08:30)
[2024-04-12 10:01] VITALS: TEMP 98.9
[2024-04-12 12:40] VITALS: BP 106/54
[2024-04-13] MEDS ORDERED: Lorazepam 1 MG TAB PO PRN (02:58)
[2024-04-13] MEDS ORDERED: Lorazepam 0.5 MG TAB PO SCH (03:00)
[2024-04-14] MEDS ORDERED: Lorazepam 0.5 MG TAB PO PRN (02:58)
[2024-04-14] MEDS ORDERED: FLU (Fluarix Triv) TS24-25(6MOS UP)/PF 45 MCG/0.5 ML Syringe IM ONE (09:00)
[2024-04-14] MEDS ORDERED: Thiamine 100 MG TAB PO SCH (09:00)
== END 2024-04-12 13:27 | disposition home or self-care (01) | DRG 640 ==
LOC: ERS 21:03 → 2SE 04-11 02:58
PROVIDERS: ADMIT Student in an Organized Health Care Education/Training Program; ATTEND Hospitalist
PROC: 4A00X4Z Measurement of Central Nervous Electrical Activity, External Approach (ICD-10-PCS; principal; 2024-04-11)
DX: E87.6 Hypokalemia (principal); K22.6 Gastro-esophageal laceration-hemorrhage syndrome; N39.0 Urinary tract infection, site not specified; R11.2 Nausea with vomiting, unspecified; E83.42 Hypomagnesemia; K80.20 Calculus of gallbladder without cholecystitis without obstruction; F12.10 Cannabis abuse, uncomplicated; Y90.8 Blood alcohol level of 240 mg/100 ml or more; R56.9 Unspecified convulsions; F17.210 Nicotine dependence, cigarettes, uncomplicated; K70.10 Alcoholic hepatitis without ascites; F10.129 Alcohol abuse with intoxication, unspecified; K70.30 Alcoholic cirrhosis of liver without ascites; Z71.41 Alcohol abuse counseling and surveillance of alcoholic; Z71.51 Drug abuse counseling and surveillance of drug abuser; Z88.0 Allergy status to penicillin; Z79.899 Other long term (current) drug therapy
CPT/HCPCS: 36415; 36416; 70551; 74177; 76705; 80053; 80306; 80307; 81001; 82105; 82140; 83690; 83735; 84100; 85025; 86850; 86900; 86901; 87040; 95700; 95712; 95957; J0696; J2405; J3411; J3475; J3480; Q9967

== ENCOUNTER 2024-05-04 10:34 | Inpatient (IN) | payer MEDICAID, OTHER ==
[2024-05-04] MEDS ORDERED: Ondansetron PF 4 MG/2 ML Vial ONE (11:37)
[2024-05-04 11:49] LABS: INR-International Normal Ratio 2.2; PTT 56.9 sec (22.9-36.1); Prothrombin Time 24.1 sec (12.0-14.7)
[2024-05-04 11:53] LABS: ALT (SGPT) 18 U/L (8-55); AST (SGOT) 50 U/L (5-34); Albumin 3.1 g/dL (3.5-5.0); Alkaline Phosphatase 144 U/L (40-110); Anion Gap 18 mmol/L (10-20); BUN (Urea Nitrogen) 7 mg/dL (7.0-18.7); Bilirubin, Total 8.3 mg/dL (0.2-1.2); Calc. Creatinine Clearance 0 mL/min (70-130); Calcium 9.1 mg/dL (7.8-10.44); Carbon Dioxide 23 mmol/L (22-29); Chloride 99 mmol/L (98-107); Estimated GFR 57; Globulin 4.1 g/dL (2.4-3.5); Glucose 91 mg/dL (70-105); Magnesium 1.7 mg/dL (1.6-2.6); Potassium 2.9 mmol/L (3.5-5.1); Protein, Total 7.2 g/dL (6.0-8.3); Sodium 137 mmol/L (136-145)
[2024-05-04 12:01] LABS: #Basophils 0.04 10x3/uL (0.0-0.2); %Basophils 0.5 % (0.0-1.0); %Eosinophils 1.5 % (0.0-10.0); %Lymphocytes 13.9 % (21.0-51.0); %Neutrophils 74.9 % (42.0-75.0); Hematocrit 35.2 % (36.0-47.0); Hemoglobin 12.3 g/dL (12.0-16.0); Mean Corpuscular HGB CONC 34.9 g/dL (32.0-36.0); Mean Corpuscular Hemoglobin 33.9 pg (27.0-31.0); Mean Platelet Volume 10.9 fL (7.4-10.4); Platelet Count 102 10x3/uL (130-400); RBC Distribution Width 16.3 % (11.5-14.5); Red Blood Cell (RBC) Count 3.63 mill/uL (4.20-5.40)
[2024-05-04] MEDS ORDERED: Labetalol HCl 100 MG/20 ML VIAL SLOW IVP PRN (12:01)
[2024-05-04] MEDS ORDERED: Acetaminophen 325 MG TAB PO PRN (12:01)
[2024-05-04] MEDS ORDERED: Acetaminophen 650 MG Suppository PR PRN (12:01)
[2024-05-04] MEDS ORDERED: Morphine 4 MG/ML VIAL ONE (12:06)
[2024-05-04] MEDS ORDERED: Ondansetron ODT 4 MG TAB PO PRN (12:11)
[2024-05-04] MEDS ORDERED: Lorazepam 2 MG/ML VIAL IM PRN (12:11)
[2024-05-04] MEDS ORDERED: Electrolyte Replacement Protocol 1 EACH FS SCH (12:15)
[2024-05-04] MEDS ORDERED: Electrolyte Replacement Protocol FS PRN (12:30)
[2024-05-04 12:43] LABS: Phosphorus 2.6 mg/dL (2.3-4.7)
[2024-05-04] MEDS: Multivit, Therapeutic 1 TAB PO SCH (13:00)
[2024-05-04] MEDS: Thiamine HCl 200 MG/2 ML VIAL SLOW IVP SCH (13:00)
[2024-05-04] MEDS: Potassium Chloride 20 MEQ in Premix 1 BAG IVPB SCH ×2 (13:00→22:05)
[2024-05-04] MEDS: Folic Acid 1 MG TAB PO SCH (13:00)
[2024-05-04] MEDS ORDERED: Folic Acid 1 MG TAB ONE (13:03)
[2024-05-04] MEDS ORDERED: Thiamine HCl 200 MG/2 ML VIAL ONE (13:03)
[2024-05-04] MEDS ORDERED: Multivit, Therapeutic 1 TAB ONE (13:03)
[2024-05-04] MEDS ORDERED: Potassium Chloride 20 MEQ (100 mL) BAG ONE (13:03)
[2024-05-04 13:48] VITALS: BMI 26.3
[2024-05-04] MEDS ORDERED: Magnevist 469MG/ML 20 ML VIAL ONE (14:33)
[2024-05-04 19:23] LABS: Lactic Acid 2.29 mmol/L (0.5-2.2)
[2024-05-04] MEDS: Lactulose 20 GM (30 mL) UDCUP PO SCH (19:29)
[2024-05-04] MEDS ORDERED: Magnesium Sulfate 2 GM in Sodium Chloride 0.9% 250 ML 250 ML IVPB SCH (20:30)
[2024-05-04] MEDS: Promethazine 25 MG TAB PO PRN (20:30)
[2024-05-04] MEDS: Lorazepam 1 MG TAB PO PRN (20:34)
[2024-05-04] MEDS: Magnesium 2 GM/50 ML(in water) 2 GM in Premix 1 BAG IVPB SCH ×2 (20:35→21:10)
[2024-05-05 04:08] LABS: #Basophils 0.04 10x3/uL (0.0-0.2); %Basophils 0.4 % (0.0-1.0); %Eosinophils 2.1 % (0.0-10.0); %Lymphocytes 12.9 % (21.0-51.0); %Monocytes 12.1 % (0.0-10.0); %Neutrophils 72.2 % (42.0-75.0); Hematocrit 36.4 % (36.0-47.0); Hemoglobin 12.2 g/dL (12.0-16.0); Mean Corpuscular HGB CONC 33.5 g/dL (32.0-36.0); Mean Corpuscular Hemoglobin 33.4 pg (27.0-31.0); Mean Corpuscular Volume 99.7 fL (78.0-98.0); Mean Platelet Volume 11.2 fL (7.4-10.4); Platelet Count 101 10x3/uL (130-400); RBC Distribution Width 16.8 % (11.5-14.5); Red Blood Cell (RBC) Count 3.65 mill/uL (4.20-5.40)
[2024-05-05 04:18] LABS: Anion Gap 16 mmol/L (10-20); BUN (Urea Nitrogen) 8 mg/dL (7.0-18.7); Calc. Creatinine Clearance 66 mL/min (70-130); Calcium 8.7 mg/dL (7.8-10.44); Carbon Dioxide 24 mmol/L (22-29); Chloride 98 mmol/L (98-107); Estimated GFR 63; Glucose 92 mg/dL (70-105); Potassium 2.9 mmol/L (3.5-5.1); Sodium 135 mmol/L (136-145)
[2024-05-05] MEDS: Potassium Chloride 10 MEQ TAB PO SCH (08:19)
[2024-05-05] MEDS: Multivitamin W/ Minerals 1 TAB PO SCH (08:20)
[2024-05-05] MEDS: Spironolactone 100 MG TAB PO SCH (08:20)
[2024-05-05] MEDS: Folic Acid 1 MG TAB PO SCH (08:20)
[2024-05-05] MEDS: Potassium Chloride 20 MEQ TAB PO SCH (08:20)
[2024-05-05] MEDS: Nadolol 40 MG TAB PO SCH (08:20)
[2024-05-05] MEDS: Magnesium 2 GM/50 ML(in water) 2 GM in Premix 1 BAG IVPB SCH (08:23)
[2024-05-05] MEDS: Pantoprazole DR 40 MG TAB PO SCH (08:23)
[2024-05-05] MEDS: Magnesium Oxide 400 MG TAB PO SCH (08:23)
[2024-05-05] MEDS ORDERED: Multivit, Therapeutic 1 TAB PO SCH (09:00)
[2024-05-05] MEDS ORDERED: Folic Acid 1 MG TAB PO SCH (09:00)
[2024-05-05] MEDS ORDERED: Lorazepam 1 MG TAB PO PRN (12:11)
[2024-05-06 04:13] LABS: Anion Gap 11 mmol/L (10-20); BUN (Urea Nitrogen) 11 mg/dL (7.0-18.7); Calc. Creatinine Clearance 84 mL/min (70-130); Calcium 8.4 mg/dL (7.8-10.44); Carbon Dioxide 23 mmol/L (22-29); Chloride 107 mmol/L (98-107); Estimated GFR 85; Glucose 113 mg/dL (70-105); Magnesium 1.8 mg/dL (1.6-2.6); Potassium 4.2 mmol/L (3.5-5.1); Sodium 137 mmol/L (136-145)
[2024-05-06 04:17] LABS: #Basophils Less than 0.03 10x3/uL (0.0-0.2); %Basophils 0.3 % (0.0-1.0); %Eosinophils 3.6 % (0.0-10.0); %Lymphocytes 19.9 % (21.0-51.0); %Monocytes 10.4 % (0.0-10.0); %Neutrophils 65.6 % (42.0-75.0); Hematocrit 34.7 % (36.0-47.0); Hemoglobin 11.2 g/dL (12.0-16.0); Mean Corpuscular HGB CONC 32.3 g/dL (32.0-36.0); Mean Corpuscular Hemoglobin 33.3 pg (27.0-31.0); Mean Corpuscular Volume 103.3 fL (78.0-98.0); Mean Platelet Volume 10.7 fL (7.4-10.4); Platelet Count 109 10x3/uL (130-400); RBC Distribution Width 17.2 % (11.5-14.5); Red Blood Cell (RBC) Count 3.36 mill/uL (4.20-5.40)
[2024-05-06] MEDS: Magnesium 2 GM/50 ML(in water) 2 GM in Premix 1 BAG IVPB SCH (08:18)
[2024-05-06 08:25] VITALS: TEMP 98.3
[2024-05-06] MEDS: levETIRAcetam 500 MG TAB PO SCH (10:45)
[2024-05-06] MEDS ORDERED: Lorazepam 1 MG TAB PO PRN (12:11)
[2024-05-06 12:23] VITALS: BP 93/61
[2024-05-07] MEDS ORDERED: Thiamine 100 MG TAB PO SCH ×2 (09:00→12:15)
[2024-05-07] MEDS ORDERED: Lorazepam 0.5 MG TAB PO PRN (12:11)
== END 2024-05-06 12:45 | disposition home or self-care (01) | DRG 66 ==
LOC: ERS 10:34 → SUATTDRO 10:34 → ERHOLD 12:10 → 2SE 18:25
PROVIDERS: ADMIT Family Medicine; ATTEND Internal Medicine
PROC: 4A00X4Z Measurement of Central Nervous Electrical Activity, External Approach (ICD-10-PCS; principal; 2024-05-04)
DX: I62.9 Nontraumatic intracranial hemorrhage, unspecified (principal); E87.6 Hypokalemia; F10.10 Alcohol abuse, uncomplicated; E83.42 Hypomagnesemia; F17.210 Nicotine dependence, cigarettes, uncomplicated; F12.10 Cannabis abuse, uncomplicated; F14.10 Cocaine abuse, uncomplicated; Z88.0 Allergy status to penicillin; K70.30 Alcoholic cirrhosis of liver without ascites; Y90.0 Blood alcohol level of less than 20 mg/100 ml; Z79.899 Other long term (current) drug therapy
CPT/HCPCS: 36415; 70450; 70553; 76376; 80048; 80053; 82140; 83605; 83735; 84100; 84443; 85025; 85610; 85730; 93306; 95816; J2272; J2405; J3411; J3475; J3480; Q0169

== ENCOUNTER 2025-03-12 10:28 | Emergency (ER) | payer OTHER ==
[2025-03-12 12:03] LABS: Bacteria/HPF Rare-Few HPF (None Seen); CAUTI Indications for Culture Alt mental st,lethar; Glucose, Urine (Dipstick) Normal (Negative); Leukocyte Negative Leu/uL (Negative); Protein, Urine (Dipstick) Negative (Neg-Trace); RBC/HPF 0-3 HPF (0-3); Specific Gravity, Urine 1.006 (1.002-1.036); WBC/HPF 0-3 HPF (0-3)
[2025-03-12 12:04] LABS: Urine Culture Reflex No No
[2025-03-12 12:51] LABS: INR-International Normal Ratio 1.6; PTT 32.9 sec (22.9-36.1); Prothrombin Time 19.6 sec (12.0-14.7)
[2025-03-12 12:54] LABS: Magnesium 1.6 mg/dL (1.6-2.6)
[2025-03-12 12:55] LABS: Acetaminophen Less than 10 mcg/mL (Less than 10); Salicylate Less than 8.0 mg/dL (Less than 8.0)
[2025-03-12 12:56] LABS: #Basophils 0.03 10x3/uL (0.0-0.2); #Eosinophils 0.04 10x3/uL (0.0-0.7); #Monocytes 0.49 10x3/uL (0.11-0.59); #Neutrophils 6.74 10x3/uL (1.40-6.50); %Basophils 0.4 % (0.0-1.0); %Eosinophils 0.5 % (0.0-10.0); %Lymphocytes 6.4 % (21.0-51.0); %Monocytes 6.2 % (0.0-10.0); %Neutrophils 85.1 % (42.0-75.0); ALT (SGPT) 16 U/L (Less than 34); AST (SGOT) 55 U/L (11-34); Albumin 2.8 g/dL (3.1-4.5); Alkaline Phosphatase 140 U/L (40-110); Anion Gap 16 mmol/L (10-20); BUN (Urea Nitrogen) 11 mg/dL (7.0-18.7); Bilirubin, Total 14.5 mg/dL (0.3-1.2); Calc. Creatinine Clearance 0 mL/min (70-130); Calcium 9.0 mg/dL (7.8-10.44); Carbon Dioxide 24 mmol/L (22-29); Chloride 88 mmol/L (98-107); Globulin 3.5 g/dL (2.4-3.5); Glucose 109 mg/dL (70-105); Hematocrit 30.7 % (36.0-47.0); Hemoglobin 10.5 g/dL (12.0-16.0); Lipase 53 U/L (8-78); Mean Corpuscular Hemoglobin 37.0 pg (27.0-31.0); Mean Corpuscular Volume 108.1 fL (78.0-98.0); Platelet Count 72 10x3/uL (130-400); Potassium 3.4 mmol/L (3.5-5.1); Red Blood Cell (RBC) Count 2.84 mill/uL (4.20-5.40); Sodium 125 mmol/L (136-145); White Blood Cell (WBC) Count 7.92 10x3/uL (4.8-10.8)
[2025-03-12] MEDS ORDERED: Multivit, Therapeutic 1 TAB ONE (13:53)
== END 2025-03-12 18:53 | disposition short-term general hospital (02) ==
LOC: ERS 10:28
DX: K70.30 Alcoholic cirrhosis of liver without ascites (principal); E87.6 Hypokalemia; R56.9 Unspecified convulsions; R94.31 Abnormal electrocardiogram [ECG] [EKG]; F17.210 Nicotine dependence, cigarettes, uncomplicated
CPT/HCPCS: 76705; 80053; 80177; 80307; 81001; 82140; 83690; 83735; 85025; 85610; 85730; 93005; 94760; 96374; 96375; J2270; J3411